=== PATIENT | female | born 1975 | race Caucasian/White ===

== ENCOUNTER → 2016-07-24 | Outpatient (CLI) | payer OTHER ==
[~2016-07-24] MED LIST: ALBUTEROL17 G1 IH; ALPRAZOLAM; ALPRAZOLAM PO; AUGMENTIN; BACTRIM DS TABL1 TAB PO; BENADRYL PO; CHANTIX PO; CIPRO PO; CLARITIN10 MG PO; ELIMITE60 GM TOP; FLEXERIL PO; IBUPROFEN; IBUPROFEN IN40 MG/ML; IBUPROFEN800 MG PO; LEVAQUIN750 MG PO; LORTAB 10/500 T1 TAB PO; LORTAB 5/500 TA1 TA1 PO; MEDROL PO; METHADONE; METHADONE PO; MOBIC PO; PHENERGAN DM1 ML PO; PHENERGAN25 MG PO; PREDNISONE PO; PRILOSEC; PRILOSEC PO; ROBITUSSIN15 MG/5 ML PO; SEROQUEL PO; STRATTERA PO; VICODIN 5/500 T1 TAB PO; XANAX1 MG PO; ZITHROMAX PO; ZITHROMAX1 G/PKT PO; ZOLOFT PO
[2016-07-24 14:35] LABS: BASOPHIL% 0.6 % (0-2.5); EOSINOPHIL# 0.2 X10e3 (0-0.7); EOSINOPHIL% 2.8 % (0.0-7.0); HEMATOCRIT 44.3 % (35.0-45.0); HEMOGLOBIN 14.7 gm/dL (12.0-16.0); LYMPHOCYTE# 2.9 X10e3 (1.0-3.5); LYMPHOCYTE% 42.6 % (17.0-45.0); MEAN CELL VOLUME 91.4 FL (83-96); MEAN CORPUSCULAR HEMOGLOBIN 30.4 PG (28-34); MEAN CORPUSCULAR HGB CONC 33.3 g/dL (30-36); MEAN PLATELET VOLUME 8.8 FL (6.5-11.5); MONOCYTE# 0.3 X10e3 (0-1.0); NEUTROPHIL# 3.3 X10e3 (1.5-7.1); PLATELET COUNT 170 X10e3 (140-420); RED BLOOD COUNT 4.84 X10e (3.90-5.30); RED CELL DISTRIBUTION WIDTH 13.3 % (11.0-15.5); WHITE BLOOD COUNT 6.7 X10e3 (4.0-10.5)
[2016-07-24 14:36] LABS: DIFF IND NO
[2016-07-24 15:02] LABS: ALBUMIN SERUM 3.7 g/dL (3.5-5.0); BILIRUBIN,TOTAL 0.6 mg/dL (0.2-2.0); BUN/CREATININE RATIO 8.33; CALCIUM SERUM 9.4 mg/dL (8.4-10.2); CREATININE SERUM 0.6 mg/dL (0.6-1.4); GLOM FILT RATE Estimated 114.8 mL/min (>60); POTASSIUM 3.9 mmol/L (3.5-5.1); PROTEIN TOTAL SERUM 8.8 g/dL (6.0-8.3)
== END | disposition home or self-care (01) ==
LOC: CLAB 14:14
PROVIDERS: Psychiatry & Neurology Neurology
DX: F11.20 Opioid dependence, uncomplicated (principal)
CPT/HCPCS: 36415; 80053; 85025